=== PATIENT | female | born 1985 | race African-American/Black ===

== ENCOUNTER 2017-07-17 13:40 | Emergency (ER) | payer BC ==
[~2017-07-17] VITALS: Ht 154.9 cm; Wt 97.1 kg
[2017-07-17] MEDS ORDERED: NORVASC5 MG PO (14:31)
[2017-07-17 14:34] LABS: URINE BILIRUBIN NEGATIVE (Negative); URINE BLOOD NEGATIVE (Negative); URINE CLARITY CLEAR; URINE COLOR YELLOW; URINE GLUCOSE-RANDOM* NEGATIVE (Negative); URINE KETONES NEGATIVE (Negative); URINE LEUKOCYTES NEGATIVE (Negative); URINE NITRITE NEGATIVE (Negative); URINE PROTEIN (DIPSTICK) NEGATIVE (Negative); URINE SPECIFIC GRAVITY 1.025 (1.005-1.035); URINE UROBILINOGEN 0.2 E.U./dl (0.2-1.0)
[2017-07-17] MEDS ORDERED: FLEXERIL PO (15:00)
[2017-07-17 15:25] VITALS: BP 127/77
== END 2017-07-17 15:25 | disposition home or self-care (01) ==
LOC: ER 13:40
PROVIDERS: Emergency Medicine
DX: S39.012A Strain of muscle, fascia and tendon of lower back, initial encounter (principal); X58.XXXA Exposure to other specified factors, initial encounter; Y93.89 Activity, other specified; Y92.89 Other specified places as the place of occurrence of the external cause; Y99.8 Other external cause status